=== PATIENT | female | born 1970 | race Caucasian/White ===

== ENCOUNTER 2016-11-21 19:35 | Emergency (ER) | payer BC, MEDICAID, OTHER ==
[2016-11-21] MEDS ORDERED: PLEASE ENTER ALLERGIES MC SCH ×2 (20:00)
[2016-11-21] MEDS ORDERED: ASPIRIN 81 MG TABLET CHEW PO ONE (20:00)
[2016-11-21] MEDS ORDERED: ASPIRIN 81 MG TABLET CHEW ONE (20:32)
[2016-11-21 20:52] LABS: ASPARTATE AMINO TRANSFERASE 17 U/L (15-37); BLOOD UREA NITROGEN 11 mg/dL (7-18)
[2016-11-21 21:16] LABS: IS PT STATUS REG ER OR PRE ER? YES
[2016-11-21] MEDS ORDERED: LORazepam 1MG TABLET ONE (21:39)
[2016-11-21 22:00] VITALS: BP 96/58
[2016-11-21] MEDS ORDERED: LORazepam 1MG TABLET PO ONE (22:00)
== END 2016-11-21 22:29 | disposition home or self-care (01) ==
LOC: ED 22:23
DX: R07.89 Other chest pain (principal); F17.200 Nicotine dependence, unspecified, uncomplicated
CPT/HCPCS: 36415; 71010; 80053; 84484; 85025; 85379; 93005

== ENCOUNTER 2017-03-20 20:47 | Emergency (ER) | payer OTHER ==
[~2017-03-20] VITALS: Ht 167.6 cm; Wt 72.9 kg
[2017-03-20] MEDS ORDERED: SODIUM CHLORIDE 0.9% 1,000ML IVBOLUS ONE (21:00)
[2017-03-20] MEDS ORDERED: SODIUM CHLORIDE FLUSH 10ML SYR IVF ONE (21:00)
[2017-03-20] MEDS ORDERED: CLON2TAB PO (21:25)
[2017-03-20] MEDS ORDERED: CITA10TA8 PO (21:25)
[2017-03-20] MEDS ORDERED: TRAZ100T15 PO (21:25)
[2017-03-20] MEDS ORDERED: ATOR20TA9 PO (21:25)
[2017-03-20 21:34] LABS: HEMATOCRIT 41.6 % (34.6-47.8); HEMOGLOBIN 13.5 g/dL (11.7-16.4); WHITE BLOOD COUNT 7.6 x10^3/uL (3.4-10)
[2017-03-20 21:44] LABS: ASPARTATE AMINO TRANSFERASE 19 U/L (15-37); BLOOD UREA NITROGEN 17 mg/dL (7-18)
[2017-03-20 22:15] VITALS: BP 97/56
[2017-03-20] MEDS ORDERED: TOPI25TA32 PO (22:31)
[2017-03-20 23:21] LABS: DAU SCREEN DISCLAIMER
== END 2017-03-21 00:25 | disposition home or self-care (01) ==
LOC: ED 22:07
DX: R55 Syncope and collapse (principal); R51 Headache; E78.00 Pure hypercholesterolemia, unspecified
CPT/HCPCS: 36415; 70450; 71010; 80053; 80307; 81003; 85025; 93005; 99285

== ENCOUNTER 2017-07-05 09:01 | Emergency (ER) | payer OTHER ==
[~2017-07-05] VITALS: Ht 170.2 cm; Wt 73.0 kg
[~2017-07-05 09:01] MED LIST: ATOR20TA9 PO; CITA10TA8 PO; CLON2TAB PO; TOPI25TA32 PO; TRAZ100T15 PO
[2017-07-05 09:47] LABS: HEMATOCRIT 45.5 % (34.6-47.8); HEMOGLOBIN 15.3 g/dL (11.7-16.4); WHITE BLOOD COUNT 6.6 x10^3/uL (3.4-10)
[2017-07-05] MEDS ORDERED: GADOBUTROL 7.5 MMOL/7.5 ML PFS ONE (10:45)
[2017-07-05 11:52] VITALS: BP 103/69
== END 2017-07-05 12:09 | disposition home or self-care (01) ==
LOC: ED 10:39
DX: F43.0 Acute stress reaction (principal); F32.9 Major depressive disorder, single episode, unspecified; F41.9 Anxiety disorder, unspecified
CPT/HCPCS: 36415; 70553; 80047; 85025; 85610; 85730; 93005; 99285; A9585

== ENCOUNTER 2018-11-15 10:56 | Emergency (ER) | payer OTHER ==
[~2018-11-15] VITALS: Ht 165.1 cm; Wt 81.5 kg
[2018-11-15 10:56] VITALS: BP 99/52
[~2018-11-15 10:56] MED LIST changes: +ATOR20TA37 PO; -ATOR20TA9 PO; +CLON1TAB23 PO; +TRAZ-137 PO; -TRAZ100T15 PO
--- NOTE | 2018-11-15 11:13 | NUR ---
Pt BIB [facility]- Pt c/o intermittent bilat flank/chest pain, near syncope, weakness starting this morning while at work. Pt states that she has been having intermittent episodes of this and "Sometimes it bothers me, sometimes it doesn't." Pt speaking in full sentences, resp even and unlabored. Pt ambulatory to bathroom and back to bed without difficulty, steady gait. Pt placed in gown, positioned for comfort in bed with warm blanket. Continuous heart, oxygen and BP monitors applied, all safety measures observed.
[2018-11-15] MEDS ORDERED: MAALOX/HYOSCYAMINE/LIDOCAINE 45 ML BTL ONE (11:22)
--- NOTE | 2018-11-15 11:25 | NUR ---
Pt medicated per MAR.
[2018-11-15] MEDS ORDERED: MAALOX/HYOSCYAMINE/LIDOCAINE 45 ML BTL PO ONE (11:30)
[2018-11-15 11:34] LABS: MICROSCOPIC NOT IND
[2018-11-15 11:36] LABS: BASOPHILS # (AUTO) 0.07 x10^3/uL (0-0.1); BASOPHILS % (AUTO) 1 % (0-1); EOSINOPHILS # (AUTO) 0.12 x10^3/uL (0-0.4); EOSINOPHILS % (AUTO) 2 % (1-7); LYMPHOCYTES % (AUTO) 40 % (22-44); MD NO; MEAN CORPUSCULAR HEMOGLOBIN 27.5 pg (27.0-34.8); MEAN CORPUSCULAR HGB CONC 33.1 g/dL (32.4-35.8); MEAN CORPUSCULAR VOLUME 82.8 fL (80-100); MEAN PLATELET VOLUME 8.8 fL (7.4-10.4); MONOCYTES % (AUTO) 6 % (2-9); NEUTROPHILS # (AUTO) 3.19 x10^3/uL (1.8-6.8); NEUTROPHILS % (AUTO) 51 % (42-75); PLATELET COUNT 291 x10^3/uL (130-400); RED BLOOD COUNT 4.75 x10^6/uL (3.82-5.3); RED CELL DISTRIBUTION WIDTH 15.5 % (9.6-15.2)
[2018-11-15 11:38] LABS: CULTURE INDICATED? NO
[2018-11-15 11:43] LABS: ALANINE AMINOTRANSFERASE 26 U/L (12-78); ALBUMIN 3.9 g/dL (3.4-5.0); ANION GAP 4 mmol/L (5-15); CALCIUM 8.9 mg/dL (8.5-10.1); CHLORIDE 109 mmol/L (98-107); CREATININE 0.96 mg/dL (0.55-1.02)
[2018-11-15 12:08] LABS: ALKALINE PHOSPHATASE 67 U/L (45-117); BILIRUBIN,TOTAL 0.2 mg/dL (0.2-1.0); TROPONIN I < 0.015 ng/mL (0.000-0.045)
[2018-11-15 12:14] LABS: TOTAL PROTEIN 6.9 g/dL (6.4-8.2)
--- NOTE | 2018-11-15 12:18 | NUR ---
Dr. Reyes at bedside to evaluate pt.
== END 2018-11-15 12:38 | disposition home or self-care (01) ==
LOC: ED 12:06
DX: K20.9 Esophagitis, unspecified (principal); R55 Syncope and collapse; E78.00 Pure hypercholesterolemia, unspecified; F32.9 Major depressive disorder, single episode, unspecified; F41.1 Generalized anxiety disorder; E78.5 Hyperlipidemia, unspecified
CPT/HCPCS: 36415; 71045; 80053; 81003; 83690; 84484; 85025; 93005; 99284

== ENCOUNTER 2018-12-13 10:00 | Emergency (ER) | payer OTHER ==
[~2018-12-13] VITALS: Ht 165.1 cm; Wt 85.3 kg
--- NOTE | 2018-12-13 10:36 | NUR ---
Pt presents for incresing pain to R shoulder and now elbow. Pain was preasent yesterday when pt woke. Worse today. Pt denies trauma. CSM intact.
[2018-12-13] MEDS ORDERED: BUPIVACAINE/PF 0.5% INFIL ONE (11:00)
[2018-12-13] MEDS ORDERED: CYCLOBENZAPRINE 10 MG TABLET PO ONE (11:00)
[2018-12-13] MEDS ORDERED: KETOROLAC 30 MG/1 ML IM ONE (11:00)
[2018-12-13] MEDS ORDERED: TRIAMCINOLONE ACETONIDE 40 MG/ML, 1ML IM ONE (11:00)
[2018-12-13] MEDS ORDERED: CYCLOBENZAPRINE 10 MG TABLET ONE (11:03)
[2018-12-13] MEDS ORDERED: BUPIVACAINE 0.25% ONE (11:04)
[2018-12-13] MEDS ORDERED: KETOROLAC 30 MG/1 ML ONE (11:04)
[2018-12-13 11:40] LABS: BASOPHILS # (AUTO) 0.03 x10^3/uL (0-0.1); BASOPHILS % (AUTO) 0 % (0-1); EOSINOPHILS # (AUTO) 0.08 x10^3/uL (0-0.4); EOSINOPHILS % (AUTO) 1 % (1-7); LYMPHOCYTES # (AUTO) 2.56 x10^3/uL (1-3.4); LYMPHOCYTES % (AUTO) 23 % (22-44); MD NO; MEAN CORPUSCULAR HEMOGLOBIN 27.5 pg (27.0-34.8); MEAN CORPUSCULAR HGB CONC 32.4 g/dL (32.4-35.8); MEAN CORPUSCULAR VOLUME 84.7 fL (80-100); MEAN PLATELET VOLUME 8.3 fL (7.4-10.4); MONOCYTES # (AUTO) 0.51 x10^3/uL (0.2-0.8); MONOCYTES % (AUTO) 5 % (2-9); NEUTROPHILS # (AUTO) 7.77 x10^3/uL (1.8-6.8); NEUTROPHILS % (AUTO) 71 % (42-75); PLATELET COUNT 342 x10^3/uL (130-400); RED BLOOD COUNT 4.97 x10^6/uL (3.82-5.3); RED CELL DISTRIBUTION WIDTH 15.4 % (9.6-15.2)
[2018-12-13 11:44] LABS: HCT (SEDRATE) 42.1 % (34.6-47.8)
[2018-12-13 11:50] LABS: ANION GAP 4 mmol/L (5-15); CALCIUM 8.9 mg/dL (8.5-10.1); CHLORIDE 107 mmol/L (98-107)
[2018-12-13 11:51] LABS: C-REACTIVE PROTEIN, QUANT 0.36 mg/dL (0.02-0.49)
[2018-12-13 11:53] LABS: CREATINE KINASE, TOTAL 67 U/L (26-192)
[2018-12-13 12:48] VITALS: BP 99/65
--- NOTE | 2018-12-13 12:54 | NUR ---
ASSIST RN: PT STILL C/O 10/10 R ARM PAIN WITH MOVEMENT. CHART UP FOR RECHECK.
== END 2018-12-13 13:51 | disposition home or self-care (01) ==
LOC: ED 12:07
DX: M25.511 Pain in right shoulder (principal); M79.631 Pain in right forearm; E78.5 Hyperlipidemia, unspecified; F41.1 Generalized anxiety disorder; E78.00 Pure hypercholesterolemia, unspecified; F32.9 Major depressive disorder, single episode, unspecified
CPT/HCPCS: 20552; 36415; 73030; 73080; 80048; 82550; 85025; 85651; 86140; 96372; 99284; J1885; J3301; S0020

== ENCOUNTER 2019-06-02 13:09 | Emergency (ER) | payer OTHER ==
[~2019-06-02] VITALS: Ht 165.1 cm; Wt 80.0 kg
[~2019-06-02 13:09] MED LIST changes: +GABA300C10 PO
--- NOTE | 2019-06-02 13:26 | NUR ---
PT BIB [facility] TO ROOM . STATES SHE STARTED FEELING WEAK AND HAVING CP ON/OFF SINCE YESTERDAY. PT ALSO HAS C/O SOB. HX ANXIETY PANIC DISORDER. DENIES HX HEART/LUNG PROBLEMS. PT RESTING ON [employer]TV. NADN. VSS. MONITORS APPLIED.
[2019-06-02 14:45] LABS: BASOPHILS # (AUTO) 0.11 x10^3/uL (0-0.1); BASOPHILS % (AUTO) 1 % (0-1); EOSINOPHILS # (AUTO) 0.21 x10^3/uL (0-0.4); EOSINOPHILS % (AUTO) 2 % (1-7); LYMPHOCYTES # (AUTO) 2.51 x10^3/uL (1-3.4); LYMPHOCYTES % (AUTO) 29 % (22-44); MD NO; MEAN CORPUSCULAR HEMOGLOBIN 27.7 pg (27.0-34.8); MEAN CORPUSCULAR HGB CONC 32.2 g/dL (32.4-35.8); MEAN CORPUSCULAR VOLUME 85.9 fL (80-100); MEAN PLATELET VOLUME 8.3 fL (7.4-10.4); MONOCYTES % (AUTO) 6 % (2-9); NEUTROPHILS # (AUTO) 5.32 x10^3/uL (1.8-6.8); NEUTROPHILS % (AUTO) 62 % (42-75); PLATELET COUNT 302 x10^3/uL (130-400); RED BLOOD COUNT 4.91 x10^6/uL (3.82-5.3); RED CELL DISTRIBUTION WIDTH 14.5 % (9.6-15.2)
[2019-06-02] MEDS ORDERED: AMIODARONE 900 MG in DEXTROSE 5% 482 ML IV PRN (14:51)
[2019-06-02 14:57] LABS: ALBUMIN 3.9 g/dL (3.4-5.0); ANION GAP 5 mmol/L (5-15); CALCIUM 8.7 mg/dL (8.5-10.1); CHLORIDE 110 mmol/L (98-107)
[2019-06-02] MEDS ORDERED: FILTER 0.22 MICRON IV ONE (15:00)
[2019-06-02 15:03] LABS: ALANINE AMINOTRANSFERASE 38 U/L (12-78); ALKALINE PHOSPHATASE 69 U/L (45-117); BILIRUBIN,TOTAL 0.5 mg/dL (0.2-1.0); CREATININE 0.93 mg/dL (0.55-1.02); TOTAL PROTEIN 7.3 g/dL (6.4-8.2); TROPONIN I < 0.015 ng/mL (0.000-0.045)
[2019-06-02 15:40] VITALS: BP 112/61
[2019-06-02] MEDS ORDERED: KETOROLAC 30 MG/1 ML ONE (16:51)
[2019-06-02] MEDS ORDERED: KETOROLAC 30 MG/1 ML IM ONE (17:00)
== END 2019-06-02 17:32 | disposition home or self-care (01) ==
LOC: ED 17:25
DX: R07.89 Other chest pain (principal); R11.0 Nausea; R50.9 Fever, unspecified; R05 Cough; R53.1 Weakness
CPT/HCPCS: 36415; 71045; 80053; 83880; 84484; 85025; 85379; 93005; 96372; 99284; J1885